=== PATIENT | female | born 1940 | race Caucasian/White ===

== ENCOUNTER 2018-05-12 08:35 | Observation (INO) ==
[2018-05-12] MEDS ORDERED: 0.9 % Sodium Chloride 1,000 ML IVC ONE (08:47)
[2018-05-12] MEDS ORDERED: Ipratropium/Albuterol Neb 3 ML IH ONE (08:48)
[2018-05-12] MEDS ORDERED: methylPREDNISolone 125 MG/2 ML VIAL IVP ONE (08:48)
[2018-05-12] MEDS ORDERED: Pantoprazole 40 MG VIAL IVP ONE (08:49)
[2018-05-12 09:07] LABS: Basophils # 0.1 K/mcL (0.0-0.2); Basophils % 0.5 %; Eosinophils # 0.1 K/mcL (0.0-0.6); Eosinophils % 0.7 %; Hematocrit 39.3 % (35.3-44.9); Immature Granulocytes % 0.2 % (0-4); Lymphocytes % 30.3 %; Mean Corpuscular HGB Conc 30.5 g/dL (31.6-35.5); Mean Corpuscular Volume 88.5 fL (83.0-100.0); Mean Platelet Volume 12.5 fL (9.4-12.4); Monocytes # 0.5 K/mcL (0.0-1.3); Neutrophils # 6.2 K/mcL (1.6-8.9); Platelet Count 143 K/mcL (140-400); Red Blood Count 4.44 M/mcL (3.82-4.97); Red Cell Distribution Width 15.2 % (11.5-14.5); Segmented Neutrophils % 63.3 %
[2018-05-12 09:13] LABS: ABG Base Excess 0 mEq/L (-2 to 3); ABG HCO3 27 mEq/L (21-27); ABG Oxygen Saturation 93 % (95-98); ABG PCO2 49 mmHg (35-45); ABG PH 7.35 pH Units (7.32-7.45); ABG PO2 73 mmHg (85-104); ABG TCO2 28 mEq/L (20-26)
[2018-05-12 09:15] LABS: INR 1.6; Prothrombin Time 17.9 Seconds (9.4-12.1)
[2018-05-12 09:25] LABS: BUN/Creatinine Ratio 23 (6-26); Blood Urea Nitrogen 18 mg/dL (8-23); Calcium 9.1 mg/dL (8.6-10.3); Carbon Dioxide 24 mEq/L (23-29); Chloride 104 mEq/L (98-107); Glucose 177 mg/dL (70-105); Osmolality,Calculated 292 (280-300); Potassium 3.7 mEq/L (3.5-5.1); Sodium 138 mEq/L (136-145); eGFR For Non-African Americans > 60 (> 60)
[2018-05-12 09:27] LABS: Troponin I < 0.03 ng/mL (< 0.04)
[2018-05-12] MEDS ORDERED: Furosemide 40 MG/4 ML VIAL IVP ONE (09:51)
--- NOTE | 2018-05-12 09:52 | Emergency Department Note ---
Disposition Clinical Impression: Acute exacerbation of chronic obstructive airways disease Pulmonary edema Qualifiers: Chronicity: chronic Qualified Code(s): J81.1 - Chronic pulmonary edema Disposition: Admitted As Inpatient Condition: Undetermined Time of Disposition: 10:07 (Dr Holcomb accepted the pt for impatient admission) SOB HPI - General Chief Complaint: ED Shortness of Breath/Dyspnea Stated Complaint: shortness of breath Time Seen by Provider: 05/12/18 08:47 Source: patient, EMS Mode of arrival: EMS Limitations: no limitations Nursing Notes Reviewed: Yes Vital Signs Reviewed: Yes - History of Present Illness Patient is a pleasant 78-year-old female with past medical history significant for HTN, CHF, Aortic aneurysm, Dyslipidemia and COPD who is presenting to [facility] Emergency Room with a chief complaint off shortness of breath, cough or chest congestion. She has been c/o cough and URI symptoms. She took her breathing treatment but was very SOB so she called EMS. Her pulse Ox was in 80s and she was given breathing treatment. Patient denies any fever, chills or night sweats. Pt also denies any eye pain or visual disturbances. There is no sore throat, nasal drainages or facial congestion. There is no chest pain, palpitations or racing heart. There is no abdominal pain, nausea, vomiting or diarrhea. There is no urgency, frequency or dysuria. There is no muskulo- skeletal pain, arthralgia or back pain. Patient also denies any rash, edema or pruritus. There is no neurological manifestations, no headache, no vertigo or weakness. The patient also denies any anxiety, depression, hallucinations and has no homicidal or suicidal ideations. There is no polyuria, polydipsia or recent weight change. There is no easy bruising or bleeding. Review of other systems is otherwise negative except above. Pt Subjective Complaint: shortness of breath, cough Context: recent illness Severity: severe Consistency/Duration: gradually worsening Improves with: bronchodilators - Related Data Home Medications Medication Instructions Recorded Confirmed Beclomethasone Diprop 80mcg [QVAR 1 puff IH BIDR 06/16/15 05/12/18 80 mcg] Magnesium Oxide [Magnesium] 400 mg PO BID 06/16/15 05/12/18 Metoprolol [Lopressor] 50 mg PO BID 06/16/15 05/12/18 Omeprazole [PriLOSEC] 20 mg PO DAILY 06/16/15 05/12/18 Simvastatin [Zocor] 40 mg PO HS 06/16/15 05/12/18 Albuterol Sulfate [Ventolin Hfa] 2 puff IH Q4H PRN 01/05/16 05/12/18 Budesonide/Formoterol 80/4.5 2 puff IH BID 01/05/16 05/12/18 [Symbicort 80/4.5] Calcium Carbonate/Vitamin D3 500 mg PO DAILY 03/20/16 05/12/18 [Oyster Shell Calcium-Vit D Tab] Furosemide [Lasix] 20 mg PO DAILY 03/20/16 05/12/18 Cetirizine HCl [All Day Allergy] 10 mg PO DAILY 11/13/17 05/12/18 Potassium Chloride [Klor-Con 10] 10 meq PO BID 11/13/17 05/12/18 Umeclidinium [place] [Incruse 62.5 mcg IH DAILY 11/13/17 Ellipta] hydroCHLOROthiazide 25 mg PO DAILY 11/13/17 05/12/18 [Hydrochlorothiazide] Previous Rx's Medication Instructions Recorded Rivaroxaban [Xarelto] 20 mg PO DAILY #30 tablet 01/07/16 Isosorbide MONOnitrate (24 HR) 30 mg PO DAILY #30 tab.er.24h 03/21/16 [Imdur] Lisinopril [Zestril] 20 mg PO DAILY #30 tablet 03/21/16 Allergies Allergy/AdvReac Type Severity Reaction Status Date / Time iodine Allergy Hives Verified 03/20/16 20:32 Iodine IVP dye Allergy Hives Uncoded 03/20/16 20:32 All systems ED: reviewed and negative except as stated. Review of Systems: As Per HPI Constitutional: Denies: fever, chills, weakness, weight change Eyes: Denies: eye pain, eye discharge, vision change ENT ED: Reports: congestion. Denies: ear pain, throat pain, dental pain, hearing loss, epistaxis, dysphagia Cardiovascular: Reports: dyspnea on exertion. Denies: chest pain, palpitations, edema, syncope Respiratory: Reports: cough, dyspnea, sputum production. Denies: wheezes, hemoptysis, stridor Gastrointestinal: Denies: abdominal pain, nausea, vomiting, diarrhea, const ipation, hematemesis, melena, hematochezia Genitourinary: Denies: dysuria, frequency, hematuria, discharge Musculoskeletal: Denies: back pain, neck pain, arthralgia, myalgia Integumentary: Denies: rash, abrasion, lesions Neurological: Denies: headache, weakness, numbness, paresthesias, confusion, ab normal gait, vertigo Psychiatric: Denies: anxiety, depression, suicidal thoughts, homicidal thoughts, auditory hallucinations, visual hallucinations Endocrine: Denies: fatigue Hematological/Lymphatic: Denies: easy bleeding, easy bruising Allergic/Immunologic: Denies: facial swelling, urticaria Past Medical History - Past Medical History Medical history: Reports: aortic aneurysm, arthritis, asthma, CHF, COPD, CVA, hypertension, TIA, other Surgical history: Reports: cholecystectomy, hysterectomy, knee replacement, other Psychiatric history: Reports: anxiety [employer] history: Reports: bilateral tubal ligation - Social History Smoking Status: Former smoker Smokeless Tobacco Status: No Alcohol use: Reports: none Drug use: Reports: none Physical Exam - General Limitations: no limitations General appearance: alert, in no apparent distress - Head Head exam: atraumatic, normocephalic, normal inspection - Eye Eye exam: Present: normal appearance, PERRL, EOMI - Expanded Eye Exam Pupils: Left: reactive - ENT ENT exam: normal exam, normal oropharynx, mucous membranes moist - Expanded ENT Exam External ear exam: Present: normal external inspection Mouth exam: Present: normal external inspection Teeth exam: Present: normal inspection Throat exam: Present: normal inspection - Neck Neck exam: Present: normal inspection, full ROM, trachea midline - Chest Chest inspection: Present: normal inspection, symmetric chest wall rise - Respiratory Respiratory exam: Present: normal lung sounds bilaterally, accessory muscle use (Nasal flaring, subcostal retractions abd breathing), prolonged expiratory phase, other (at the beginning there was no wheezes as she was NOT moving air, improved resp sounds started to have prolonged exp wheezes) - Cardiovascular Cardiovascular exam: Present: regular rate, normal rhythm, normal heart sounds - Abdominal Exam Abdominal exam: Present: soft, Non-Tender. Absent: tenderness, distention, guarding, rebound, rigidity - Extremities Exam Extremities exam: Present: normal inspection, full ROM. Absent: tenderness, pedal edema - Expanded Upper Extremity Exam Shoulder exam: Present: normal inspection, full ROM Arm exam: Present: normal inspection, full ROM Elbow exam: Present: normal inspection, full ROM Forearm/Wrist exam: Present: normal inspection, full ROM Hand exam: Present: normal inspection, full ROM Vascular exam: Normal: capillary refill, radial pulse - Expanded Lower Extremity Exam Hip/Pelvis exam: Present: normal inspection, full ROM Upper leg exam: Present: normal inspection, full ROM Knee exam: Present: normal inspection, full ROM Lower leg exam: Present: normal inspection, full ROM Ankle exam: Present: normal inspection, full ROM Foot/toe exam: Present: normal inspection, full ROM Neurovascular/Tendon exam: Absent: motor deficit, sensory deficit, tendon deficit - Back Exam Back exam: Present: normal inspection, full ROM. Absent: tenderness - Neurological Exam Neurological exam: Present: alert, oriented X3 - Expanded Neurological Exam Patient oriented to: Present: person, place, time Coma Scale Eye Opening: Spontaneous Coma Scale Motor Response: Obeys Commands Coma Scale Verbal Response: Oriented Coma Scale Total: 15 - Psychiatric Psychiatric exam: Present: normal affect, normal mood - Skin Skin exam: Present: warm, dry, intact, normal color Course Vital Signs Temperature 98.9 F 05/12/18 08:36 Pulse Rate 106 05/12/18 08:36 Respiratory Rate 26 05/12/18 08:36 Blood Pressure 162/112 05/12/18 08:36 O2 Sat by Pulse Oximetry 90 05/12/18 08:36 Temperature 98.9 F 05/12/18 08:36 Pulse Rate 79 05/12/18 09:40 Respiratory Rate 22 05/12/18 09:40 Blood Pressure 138/59 05/12/18 09:40 O2 Sat by Pulse Oximetry 98 05/12/18 09:40 Oxygen Delivery Oxygen Delivery Nasal Cannula Shortness of Breath/Dyspnea - Differential Diagnosis Likely: acute exacerbation of chronic obstructive airways disease, congestive heart failure - Medical Records Medical records reviewed: Yes I reviewed the patient's medical records. - Lab Data Lab results reviewed: Yes I reviewed the patient's lab results. Result diagrams: 05/12/18 09:00 05/12/18 09:00 Lab Results 05/12/18 05/12/18 05/12/18 Range/Units 09:00 09:00 09:00 WBC 9.8 (4.3-11.1) K/mcL RBC 4.44 (3.82-4.97) M/mcL Hgb 12.0 (11.5-15.4) g/dL Hct 39.3 (35.3-44.9) % MCV 88.5 (83.0-100.0) fL MCH 27.0 L (28.0-33.3) pg MCHC 30.5 L (31.6-35.5) g/dL RDW 15.2 H (11.5-14.5) % Plt Count 143 (140-400) K/mcL MPV 12.5 H (9.4-12.4) fL Immature Gran % 0.2 (0-4) % Seg Neutrophils % 63.3 % Lymphocytes % 30.3 % Monocytes % 5.0 % Eosinophils % 0.7 % Basophils % 0.5 % Neutrophils # 6.2 (1.6-8.9) K/mcL Lymphocytes # 3.0 (0.6-4.6) K/mcL Monocytes # 0.5 (0.0-1.3) K/mcL Eosinophils # 0.1 (0.0-0.6) K/mcL Basophils # 0.1 (0.0-0.2) K/mcL PT 17.9 H (9.4-12.1) Seconds INR 1.6 APTT (26.0-36.0) Seconds Sample Site ABG pH (7.32-7.45) pH Units ABG pCO2 (35-45) mmHg ABG pO2 (85-104) mmHg ABG HCO3 (21-27) mEq/L ABG Total CO2 (20-26) mEq/L ABG O2 Saturation (95-98) % ABG Base Excess (-2 to 3) mEq/L Willy Test O2 Delivery Device Sodium 138 (136-145) mEq/L Potassium 3.7 (3.5-5.1) mEq/L Chloride 104 (98-107) mEq/L Carbon Dioxide 24 (23-29) mEq/L BUN 18 (8-23) mg/dL Creatinine 0.78 (0.60-1.20) mg/dL Est GFR ( Amer) > 60 (> 60) Est GFR (Non-Af Amer) > 60 (> 60) BUN/Creatinine Ratio 23 (6-26) Glucose 177 H (70-105) mg/dL Calculated Osmolality 292 (280-300) Calcium 9.1 (8.6-10.3) mg/dL Troponin I < 0.03 (< 0.04) ng/mL B-Natriuretic Peptide (Less than 100) pg/mL 05/12/18 05/12/18 05/12/18 Range/Units 09:00 09:00 09:10 WBC (4.3-11.1) K/mcL RBC (3.82-4.97) M/mcL Hgb (11.5-15.4) g/dL Hct (35.3-44.9) % MCV (83.0-100.0) fL MCH (28.0-33.3) pg MCHC (31.6-35.5) g/dL RDW (11.5-14.5) % Plt Count (140-400) K/mcL MPV (9.4-12.4) fL Immature Gran % (0-4) % Seg Neutrophils % % Lymphocytes % % Monocytes % % Eosinophils % % Basophils % % Neutrophils # (1.6-8.9) K/mcL Lymphocytes # (0.6-4.6) K/mcL Monocytes # (0.0-1.3) K/mcL Eosinophils # (0.0-0.6) K/mcL Basophils # (0.0-0.2) K/mcL PT (9.4-12.1) Seconds INR APTT 37.6 H (26.0-36.0) Seconds Sample Site R Radial ABG pH 7.35 (7.32-7.45) pH Units ABG pCO2 49 H (35-45) mmHg ABG pO2 73 L (85-104) mmHg ABG HCO3 27 (21-27) mEq/L ABG Total CO2 28 H (20-26) mEq/L ABG O2 Saturation 93 L (95-98) % ABG Base Excess 0 (-2 to 3) mEq/L Willy Test Positive O2 Delivery Device Room Air Sodium (136-145) mEq/L Potassium (3.5-5.1) mEq/L Chloride (98-107) mEq/L Carbon Dioxide (23-29) mEq/L BUN (8-23) mg/dL Creatinine (0.60-1.20) mg/dL Est GFR ( Amer) (> 60) Est GFR (Non-Af Amer) (> 60) BUN/Creatinine Ratio (6-26) Glucose (70-105) mg/dL Calculated Osmolality (280-300) Calcium (8.6-10.3) mg/dL Troponin I (< 0.04) ng/mL B-Natriuretic Peptide 386 H (Less than 100) pg/mL - Radiology Data Radiology results reviewed: Yes I reviewed the patient's radiology results. - EKG Data EKG attestation: Yes I reviewed and interpreted this EKG. Rate: Reports: tachycardia Rhythm: Reports: A.Fib Interpretation: Reports: no acute changes, unchanged when compared to prior tracing (date) (2015)
[2018-05-12] MEDS ORDERED: Naloxone 0.4 MG/ML INJ IVP PRN (10:09)
[2018-05-12] MEDS ORDERED: Albuterol 2.5 MG/3 ML NEBULIZER IH PRN (11:06)
--- NOTE | 2018-05-12 13:12 | Internal Med History&Physical ---
Date of Encounter: 05/12/18 Time of Encounter: 12:45 Assessment and Plan (1) Congestive heart failure Current visit: No Status: Chronic She was given IV Lasix in emergency room. Continue HCTZ, Imdur, lisinopril, and metoprolol. Qualifiers: Heart failure type: systolic Heart failure chronicity: chronic Qualified Code(s): I50.22 - Chronic systolic (congestive) heart failure (2) COPD (chronic obstructive pulmonary disease) Current visit: No Status: Chronic Continue Symbicort, Incruse, and albuterol. Qualifiers: COPD type: unspecified COPD Qualified Code(s): J44.9 - Chronic obstructive pulmonary disease, unspecified (3) Atrial fibrillation Current visit: No Status: Chronic Continue metoprolol and Xarelto. Add Lanoxin for rate control and heart failure. Qualifiers: Atrial fibrillation type: chronic Qualified Code(s): I48.2 - Chronic atrial fibrillation (4) HTN (hypertension) Current visit: No Status: Chronic Continue hydrochlorothiazide, lisinopril, and metoprolol. Qualifiers: Hypertension type: essential hypertension Qualified Code(s): I10 - Essential (primary) hypertension (5) Pulmonary edema Current visit: Yes Status: Acute As above Qualifiers: Chronicity: acute Qualified Code(s): J81.0 - Acute pulmonary edema Internal Medicine - H&P: HPI Chief complaint: Dyspnea Admitted From: Emergency Dept Plans for Post Hospital Care: Home History of present illness: Ms. Parrish is a 78 year old female who came to emergency room stating she had onset of dyspnea the morning of May 11. She states she had a cough productive of slight amount of white sputum. She had chest heaviness. She did not take additional medication at the time. She states the dyspnea persisted all day and she awakened again this morning with it so decided to come to emergency room. She was evaluated and felt to have exacerbation of COPD per she was admitted to [facility] floor for ongoing care needs. Her respiratory history is significant for having smoked from age [age] up to 2- 1/2 packs per day. She has oxygen at home and uses it nearly 24/7. She had pulmonary function tests done 02/15/2016 which showed moderate obstructive lung disease without significant bronchodilator response. She had chest CT done during a March 2016 [facility] hospitalization which showed no acute airspace disease seen. Past Med Surg Social Fam HX - Past Medical History Medical history: aortic aneurysm, arthritis, asthma, CHF, COPD, GERD, hypertension, TIA, other Psychiatric history: anxiety - Past Surgical History Surgical History: cholecystectomy, hysterectomy, knee replacement, other Additional surgical history: left knee replacement - Social History Smoking Status: Former smoker Smokeless Tobacco Status: No Alcohol use: none Drug use: none - Family History Mother Adopted: No Family Member Ethnicity: Non- Living Status: Hx Family Cardiac Disorders: Yes Hx Family Respiratory Disorders: No Hx Family Cancer: No Hx Family GI Disorders: No Hx Family Endocrine Disorder: No Hx Family Neuromuscular Disorders: No Hx Family Neurologic Disorders: No Hx Family HEENT Disorders: No Hx Family Autoimmune Disorders: No Internal Medicine - H&P: Meds Beclomethasone Diprop 80mcg [QVAR 80 mcg] 1 puff IH BIDR 06/16/15 [History] Magnesium Oxide [Magnesium] 400 mg PO BID 06/16/15 [History] Metoprolol [Lopressor] 50 mg PO BID 06/16/15 [History] Omeprazole [PriLOSEC] 20 mg PO DAILY 06/16/15 [History] Simvastatin [Zocor] 40 mg PO HS 06/16/15 [History] Albuterol Sulfate [Ventolin Hfa] 2 puff IH Q4H PRN 01/05/16 [History] Budesonide/Formoterol 80/4.5 [Symbicort 80/4.5] 2 puff IH BID 01/05/16 [History] Rivaroxaban [Xarelto] 20 mg PO DAILY #30 tablet 01/07/16 [Rx] Calcium Carbonate/Vitamin D3 [Oyster Shell Calcium-Vit D Tab] 500 mg PO DAILY 03/20/16 [History] Furosemide [Lasix] 20 mg PO DAILY 03/20/16 [History] Isosorbide MONOnitrate (24 HR) [Imdur] 30 mg PO DAILY #30 tab.er.24h 03/21/16 [Rx] Lisinopril [Zestril] 20 mg PO DAILY #30 tablet 03/21/16 [Rx] Cetirizine HCl [All Day Allergy] 10 mg PO DAILY 11/13/17 [History] Potassium Chloride [Klor-Con 10] 10 meq PO BID 11/13/17 [History] Umeclidinium [place] [Incruse Ellipta] 62.5 mcg IH DAILY 11/13/17 [History] hydroCHLOROthiazide [Hydrochlorothiazide] 25 mg PO DAILY 11/13/17 [History] Allergy/AdvReac Type Severity Reaction Status Date / Time iodine Allergy Hives Verified 03/20/16 20:32 Iodine IVP dye Allergy Hives Uncoded 03/20/16 20:32 All Systems PM: A 10-system review of systems was performed and is negative for pertinent findings except as documented above in the HPI. Review of systems: Gen.: She states her weight is been stable the past year. Her weight record shows decline from 114.872 kg on 03/21/2016 to 95.254 kg on admission now. Cardiovascular: She has history of hypertension but no known MA heart failure angina DVT or pulmonary embolus. She has chronic atrial fibrillation and was placed on Xarelto during her December 2015 [facility] hospitalization. She underwent nuclear stress test during that hospitalization which was negative for ischemia or infarct. Echocardiogram 08/16/2016 showed LVEF of 45% with no significant valvular dysfunction noted. She has chronic left bundle-branch block. Respiratory: As per history of present illness GI: She has history of peptic ulcer disease and GERD. She claims she had pancreatitis June 2013 of uncertain etiology. She denies disorders of her liver gallbladder or exocrine pancreas otherwise : She has urinary incontinence both stress and urge type. She denies other known kidney or bladder disorders Neurologic: She was told she has had "mini strokes" in the past while hospitali zed at [facility] in June 2013. She denies permanent residual neurologic deficits. She has had no seizures. Endocrine: She had partial thyroid resection several years ago for goiter. Soft tissue neck CT March 2016 showed no significant change from June 2015 study. There was no cervical adenopathy. She has hyperlipidemia but no known diabetes Hematology/oncology: She denies internal malignancies but has had anemia in the past which has resolved now. [place] skeletal: She had left total knee replacement March 2013. She denies known gout or osteoporosis Psychiatric: She has depression but no significant anxiety or other mental health issues. - Constitutional Vitals: Temp Pulse Resp BP Pulse Ox 98.1 F 94 30 126/83 95 05/12/18 10:54 05/12/18 10:54 05/12/18 10:54 05/12/18 10:54 05/12/18 10:54 Exam: Gen.: She is a well-developed morbidly obese female lying in bed who appears dyspneic. HEENT: Head is atraumatic and normocephalic. Eyes: EOMI. There is no scleral icterus. Mouth: Mucosa is moist. Neck: Supple and nontender. There is no thyromegaly or adenopathy noted. Heart: Irregularly irregular without murmurs or gallops Lungs: No wheezes or crackles are heard. She has diminished breath sounds diffusely Abdomen: Soft and nontender. No masses or guarding are noted. Extremities: There is no cyanosis edema or clubbing noted. Dorsalis pedis and posttibial pulses are trace palpable bilaterally. Neurologic: Mental status: She is talkative and a good historian. Cranial nerve s: Smile is symmetric. Forehead wrinkles bilaterally. Tongue protrudes midline. EOMI. Motor: There is no pronator drift. Cerebellar: Finger to nose is intact bilaterally. Skin: Warm and dry Internal Med - H&P Results - Labs CBC & Chem 7: 05/12/18 09:00 05/12/18 09:00 Labs: Short CBC 05/12/18 Range/Units 09:00 WBC 9.8 (4.3-11.1) K/mcL Hgb 12.0 (11.5-15.4) g/dL Hct 39.3 (35.3-44.9) % Plt Count 143 (140-400) K/mcL Neutrophils # 6.2 (1.6-8.9) K/mcL BMP 05/12/18 09:00 Sodium 138 Potassium 3.7 Chloride 104 Carbon Dioxide 24 BUN 18 Creatinine 0.78 Glucose 177 H Calcium 9.1 Cardiac Enzymes 05/12/18 Range/Units 09:00 Troponin I < 0.03 (< 0.04) ng/mL - ABG Interpretation ABG results: 05/12/18 09:10 ABG pH 7.35 ABG pCO2 49 H ABG pO2 73 L ABG HCO3 27 ABG Total CO2 28 H ABG O2 Saturation 93 L ABG Base Excess 0 - Impressions ITS Impressions Chest X-Ray 05/12/18 08:47 IMPRESSION: Findings of pulmonary edema. D/ / Hemant Wall MD / Hemant Wall MD Interpreting Provider: Hemant Wall MD
[2018-05-12] MEDS: Budesonide/Formoterol 160/4.5 1 PUFF INH IH SCH ×2 (13:50→21:33)
[2018-05-12] MEDS: Isosorbide MONOnitrate (24 HR) 60 MG TAB.ER.24H PO SCH (15:17)
[2018-05-12] MEDS: *HR* Digoxin 0.125 MG TABLET PO SCH (15:17)
[2018-05-12] MEDS: Furosemide 40 MG/4 ML VIAL IVP SCH ×2 (15:18→15:20)
[2018-05-12] MEDS ORDERED: *HR* Rivaroxaban 10 MG TABLET PO SCH (17:00)
[2018-05-12] MEDS: Magnesium Oxide 400 MG TABLET PO SCH (20:39)
[2018-05-13] MEDS: Ibuprofen 400 MG TABLET PO PRN ×2 (01:51→08:07)
[2018-05-13 06:11] LABS: Basophils % 0.1 %; Hematocrit 34.4 % (35.3-44.9); Hemoglobin 10.8 g/dL (11.5-15.4); Immature Granulocytes % 0.1 % (0-4); Lymphocytes # 1.3 K/mcL (0.6-4.6); Lymphocytes % 17.4 %; Mean Corpuscular HGB Conc 31.4 g/dL (31.6-35.5); Mean Corpuscular Hemoglobin 27.3 pg (28.0-33.3); Mean Corpuscular Volume 87.1 fL (83.0-100.0); Mean Platelet Volume 12.7 fL (9.4-12.4); Monocytes # 0.4 K/mcL (0.0-1.3); Monocytes % 6.1 %; Neutrophils # 5.5 K/mcL (1.6-8.9); Platelet Count 131 K/mcL (140-400); Red Blood Count 3.95 M/mcL (3.82-4.97); Red Cell Distribution Width 15.4 % (11.5-14.5); Segmented Neutrophils % 76.3 %
[2018-05-13 06:34] LABS: BUN/Creatinine Ratio 22 (6-26); Blood Urea Nitrogen 21 mg/dL (8-23); Calcium 8.8 mg/dL (8.6-10.3); Carbon Dioxide 29 mEq/L (23-29); Chloride 101 mEq/L (98-107); Chol/HDL Ratio 2.4 (0-4.9); Cholesterol 100 mg/dL (< 200); Glucose 147 mg/dL (70-105); HDL Cholesterol 41 mg/dL (40-59); LDL Cholesterol,Calculated 47 mg/dL (0-99); Osmolality,Calculated 292 (280-300); Phosphorous 2.5 mg/dL (2.7-4.5); Potassium 4.3 mEq/L (3.5-5.1); Sodium 138 mEq/L (136-145); Triglycerides 58 mg/dL (< 150); eGFR For Non-African Americans 57 (> 60)
[2018-05-13] MEDS: *HR* Digoxin 0.125 MG TABLET PO SCH (07:40)
[2018-05-13] MEDS: Furosemide 40 MG/4 ML VIAL IVP SCH (07:40)
[2018-05-13] MEDS: Isosorbide MONOnitrate (24 HR) 60 MG TAB.ER.24H PO SCH (07:40)
[2018-05-13] MEDS: Magnesium Oxide 400 MG TABLET PO SCH (07:40)
--- NOTE | 2018-05-13 08:58 | Discharge Summary ---
Orders not resulted at time of discharge: Pending orders 05/12/18 08:47 ECG 12 lead ECG [ECG] Stat 05/12/18 08:48 Urinalysis Reflex Cult & Micro [URIN] Stat Date of Encounter: 05/13/18 Time of Encounter: 08:50 - Discharge Diagnosis (1) Congestive heart failure Priority: Primary Status: Chronic Qualifiers: Heart failure type: systolic Heart failure chronicity: chronic Qualified Code(s): I50.22 - Chronic systolic (congestive) heart failure (2) COPD (chronic obstructive pulmonary disease) Priority: Secondary Status: Chronic Qualifiers: COPD type: unspecified COPD Qualified Code(s): J44.9 - Chronic obstructive pulmonary disease, unspecified (3) Atrial fibrillation Priority: Secondary Status: Chronic Qualifiers: Atrial fibrillation type: chronic Qualified Code(s): I48.2 - Chronic atrial fibrillation (4) HTN (hypertension) Priority: Secondary Status: Chronic Qualifiers: Hypertension type: essential hypertension Qualified Code(s): I10 - Essenti al (primary) hypertension (5) Pulmonary edema Priority: Secondary Status: Acute Qualifiers: Chronicity: acute Qualified Code(s): J81.0 - Acute pulmonary edema Hospital course: Ms. Parrish is a 78 year old female who came to emergency room stating she had onset of dyspnea the morning of May 11. She states she had a cough productive of slight amount of white sputum. She had chest heaviness. She did not take additional medication at the time. She states the dyspnea persisted all day and she awakened again this morning with it so decided to come to emergency room. She was evaluated and felt to have exacerbation of COPD per she was admitted to [facility] for ongoing care needs. Initial orders were written by the emergency room physician. I saw her on May 12 and performed the history and physical. She was started on IV Lasix. Hydrochlorothiazide, Imdur, lisinopril, and metoprolol were continued. The Imdur dose was increased and Lanoxin was added. She had significant improvement overnight and felt back to her baseline when I saw her on May 13. Wheezing and dyspnea had completely resolved and she was sitting in a chair at bedside resting comfortably. She felt stable for discharge home which I felt was reasonable. She will follow with her PCP Joanna Nolan CNP within 1 week. She will continue on Lanoxin and increased doses of Imdur, Lasix, and potassium. Fasting blood sugar on May 13 was elevated at 147. Her PCP can monitor and order further workup for diabetes. Hemoglobin had decreased slightly to 10.8 on May 13. Her PCP can monitor. - Time Spent with Patient Total time spent providing and/or coordinating discharge services: - Discharge Medications Prescriptions: Digoxin [Lanoxin] 0.125 mg PO DAILY #30 tablet Furosemide [Lasix] 40 mg PO DAILY #30 tablet Isosorbide MONOnitrate (24 HR) [Imdur] 60 mg PO DAILY #30 tab.er.24h Potassium Chloride 20 meq PO BIDWM #120 tab.er.prt Home Medications: Beclomethasone Diprop 80mcg [QVAR 80 mcg] 1 puff IH BIDR 06/16/15 [History] Magnesium Oxide [Magnesium] 400 mg PO BID 06/16/15 [History] Metoprolol [Lopressor] 50 mg PO BID 06/16/15 [History] Omeprazole [PriLOSEC] 20 mg PO DAILY 06/16/15 [History] Simvastatin [Zocor] 40 mg PO HS 06/16/15 [History] Albuterol Sulfate [Ventolin Hfa] 2 puff IH Q4H PRN 01/05/16 [History] Budesonide/Formoterol 80/4.5 [Symbicort 80/4.5] 2 puff IH BID 01/05/16 [History] Rivaroxaban [Xarelto] 20 mg PO DAILY #30 tablet 01/07/16 [Rx] Calcium Carbonate/Vitamin D3 [Oyster Shell Calcium-Vit D Tab] 500 mg PO DAILY 03/20/16 [History] Lisinopril [Zestril] 20 mg PO DAILY #30 tablet 03/21/16 [Rx] Umeclidinium [place] [Incruse Ellipta] 62.5 mcg IH DAILY 11/13/17 [History] hydroCHLOROthiazide [Hydrochlorothiazide] 25 mg PO DAILY 11/13/17 [History] Cetirizine HCl [All Day Allergy] 10 mg PO DAILY PRN #0 05/13/18 [Rx] Digoxin [Lanoxin] 0.125 mg PO DAILY #30 tablet 05/13/18 [Rx] Furosemide [Lasix] 40 mg PO DAILY #30 tablet 05/13/18 [Rx] Isosorbide MONOnitrate (24 HR) [Imdur] 60 mg PO DAILY #30 tab.er.24h 05/13/18 [Rx] Potassium Chloride 20 meq PO BIDWM #120 tab.er.prt 05/13/18 [Rx] Allergies/Adverse Reactions: Allergy/AdvReac Type Severity Reaction Status Date / Time iodine Allergy Hives Verified 03/20/16 20:32 Iodine IVP dye Allergy Hives Uncoded 03/20/16 20:32 Date of admission: 05/12/18 10:14 Primary care physician: Joanna Villa - Constitutional Vitals: Temp Pulse Resp BP Pulse Ox 98.1 F 73 16 105/63 95 05/13/18 07:12 05/13/18 07:12 05/13/18 07:12 05/13/18 07:12 05/13/18 07:12 - Patient Status Disposition: Home, Self-Care Condition: Undetermined - Discharge Instructions Follow Up With: Joanna Villa, [employer] [Primary Care Provider] - - Diet and Activity Activity: resume usual activities as tolerated, wear oxygen at all times Diet: low salt diet
[2018-05-13] MEDS ORDERED: Lisinopril 20 MG TABLET PO SCH (09:00)
[2018-05-13] MEDS ORDERED: hydroCHLOROthiazide 25 MG TABLET PO SCH (09:00)
[2018-05-13] MEDS: Budesonide/Formoterol 160/4.5 1 PUFF INH IH SCH (09:41)
[2018-05-13 10:07] VITALS: BP 76/45
[2018-05-13] MEDS ORDERED: *HR* Rivaroxaban 15 MG TABLET PO SCH (17:00)
--- NOTE | 2018-05-14 19:54 | Electrocardiograph Report ---
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
== END 2018-05-13 11:39 | disposition home or self-care (01) ==
LOC: EMEROOPIK 08:35 → INPPIK 08:35
PROVIDERS: ADMIT Internal Medicine; ATTEND Internal Medicine

== ENCOUNTER 2019-11-13 00:21 | Inpatient (IN) ==
[2019-11-13] MEDS ORDERED: Ipratropium/Albuterol Neb 3 ML IH ONE (00:28)
[2019-11-13] MEDS ORDERED: methylPREDNISolone 125 MG/2 ML VIAL IVP ONE ×2 (00:28→08:00)
[2019-11-13 01:15] LABS: Basophils % 0.3 %; Eosinophils # 0.1 K/mcL (0.0-0.6); Eosinophils % 0.6 %; Hematocrit 41.9 % (35.3-44.9); Hemoglobin 13.4 g/dL (11.5-15.4); Immature Granulocytes % 0.3 % (0-4); Lymphocytes # 1.2 K/mcL (0.6-4.6); Lymphocytes % 11.8 %; Mean Corpuscular Hemoglobin 30.4 pg (28.0-33.3); Mean Platelet Volume 12.4 fL (9.4-12.4); Monocytes % 10.5 %; Neutrophils # 7.5 K/mcL (1.6-8.9); Platelet Count 137 K/mcL (140-400); Red Blood Count 4.41 M/mcL (3.82-4.97); Red Cell Distribution Width 13.2 % (11.5-14.5); Segmented Neutrophils % 76.5 %; White Blood Count 9.9 K/mcL (4.3-11.1)
[2019-11-13 01:36] LABS: BUN/Creatinine Ratio 26 (6-26); Blood Urea Nitrogen 16 mg/dL (8-23); Calcium 9.1 mg/dL (8.6-10.3); Carbon Dioxide 25 mEq/L (23-29); Chloride 101 mEq/L (98-107); Glucose 141 mg/dL (70-105); Osmolality,Calculated 286 (280-300); Potassium 4.1 mEq/L (3.5-5.1); Sodium 136 mEq/L (136-145); eGFR For African Americans > 60 (> 60); eGFR For Non-African Americans > 60 (> 60)
[2019-11-13 01:37] LABS: Troponin I 0.03 ng/mL (< 0.04)
[2019-11-13] MEDS ORDERED: Naloxone 0.4 MG/ML INJ IVP PRN (03:09)
[2019-11-13] MEDS: Azithromycin 500 MG in 0.9 % Sodium Chloride 250 ML IVPB SCH (03:45)
[2019-11-13] MEDS: cefTRIAXone 1,000 MG in 0.9 % Sodium Chloride Mini Bag 100 ML IVPB SCH (08:20)
[2019-11-13] MEDS: Ipratropium/Albuterol Neb 3 ML IH SCH ×6 (08:20→23:40)
[2019-11-13] MEDS: Furosemide 20 MG TABLET PO SCH (08:21)
[2019-11-13] MEDS: Aspirin 81 MG TAB.CHEW PO SCH (08:22)
[2019-11-13] MEDS: lisinopriL 20 MG TABLET PO SCH (08:22)
[2019-11-13] MEDS: Tiotropium 18 MCG inhalation IH SCH (08:25)
[2019-11-13] MEDS: Fluticasone Propionate Nasal 50 MCG/SPRAY BOTTLE NS SCH (08:35)
[2019-11-13] MEDS ORDERED: ALPRAZolam 0.25 MG TABLET PO PRN (10:09)
[2019-11-13 16:46] LABS: Bilirubin,Urine Negative (Negative); Blood,Urine Negative (Negative); Clarity,Urine Clear (Clear); Color,Urine Yellow (Yellow); Glucose,Urine (UA) Normal (Normal); Ketones,Urine Negative (Negative); Leukocyte Esterase,Urine Small (Negative); Nitrite,Urine Negative (Negative); PH,Urine 5.5 pH Units (5.0-8.0); Protein,Urine Negative (Neg-Trace); Urobilinogen,Urine Normal (Normal)
[2019-11-13 16:55] LABS: Bacteria,Urine Few per hpf (None-Few); RBC,Urine 0-3 per hpf (0-3); Squamous Epithelial Cell,Urine Few per lpf (None-Few)
[2019-11-13 22:46] LABS: Adenovirus Not Detected (Not Detect); Bordetella Pertussis Not Detected (Not Detect); Chlamydophila pneumoniae Not Detected (Not Detect); Coronavirus 229E Not Detected (Not Detect); Coronavirus HKU1 Not Detected (Not Detect); Coronavirus NL63 Not Detected (Not Detect); Coronavirus OC43 Not Detected (Not Detect); Human Metapneumovirus Not Detected (Not Detect); Human Rhinovirus/Enterovirus Not Detected (Not Detect); Influenza A Subtype 2009 H1 Not Detected (Not Detect); Influenza B Not Detected (Not Detect); Mycoplasma pneumoniae Not Detected (Not Detect); Parainfluenza Virus 1 Not Detected (Not Detect); Parainfluenza Virus 2 Not Detected (Not Detect); Parainfluenza Virus 3 Not Detected (Not Detect); Parainfluenza Virus 4 Not Detected (Not Detect); Respiratory Syncytial Virus Not Detected (Not Detect)
[2019-11-14] MEDS: Azithromycin 500 MG in 0.9 % Sodium Chloride 250 ML IVPB SCH (02:10)
[2019-11-14] MEDS: Acetaminophen 325 MG TABLET PO PRN ×2 (02:10→17:17)
[2019-11-14] MEDS: Ipratropium/Albuterol Neb 3 ML IH SCH ×5 (04:41→21:07)
[2019-11-14 05:24] LABS: Hematocrit 37.9 % (35.3-44.9); Hemoglobin 12.1 g/dL (11.5-15.4); Mean Corpuscular HGB Conc 31.9 g/dL (31.6-35.5); Mean Corpuscular Hemoglobin 30.4 pg (28.0-33.3); Mean Corpuscular Volume 95.2 fL (83.0-100.0); Mean Platelet Volume 13.2 fL (9.4-12.4); Platelet Count 126 K/mcL (140-400); Red Blood Count 3.98 M/mcL (3.82-4.97); Red Cell Distribution Width 13.1 % (11.5-14.5); White Blood Count 9.9 K/mcL (4.3-11.1)
[2019-11-14 05:43] LABS: BUN/Creatinine Ratio 29 (6-26); Blood Urea Nitrogen 17 mg/dL (8-23); Calcium 9.1 mg/dL (8.6-10.3); Carbon Dioxide 29 mEq/L (23-29); Chloride 103 mEq/L (98-107); Glucose 144 mg/dL (70-105); Osmolality,Calculated 294 (280-300); Potassium 4.3 mEq/L (3.5-5.1); Sodium 140 mEq/L (136-145); eGFR For African Americans > 60 (> 60); eGFR For Non-African Americans > 60 (> 60)
[2019-11-14] MEDS: cefTRIAXone 1,000 MG in 0.9 % Sodium Chloride Mini Bag 100 ML IVPB SCH (07:48)
[2019-11-14] MEDS: Furosemide 20 MG TABLET PO SCH (07:49)
[2019-11-14] MEDS: Fluticasone Propionate Nasal 50 MCG/SPRAY BOTTLE NS SCH (07:49)
[2019-11-14] MEDS: Aspirin 81 MG TAB.CHEW PO SCH (07:49)
[2019-11-14] MEDS: lisinopriL 20 MG TABLET PO SCH (07:54)
[2019-11-14] MEDS: Tiotropium 18 MCG inhalation IH SCH (08:05)
[2019-11-14 10:29] LABS: Estimated Average Glucose 140 mg/dl
[2019-11-14] MEDS: MethylPREDNISolone 40 MG/ML VIAL IVP SCH ×2 (17:15→19:59)
[2019-11-14] MEDS ORDERED: MethylPREDNISolone 40 MG/ML VIAL IVP SCH (18:00)
[2019-11-14] MEDS: Benzonatate 100 MG CAPSULE PO SCH (20:25)
[2019-11-15] MEDS: Ipratropium/Albuterol Neb 3 ML IH SCH ×6 (00:40→20:25)
[2019-11-15] MEDS: Azithromycin 500 MG in 0.9 % Sodium Chloride 250 ML IVPB SCH (03:41)
[2019-11-15 07:46] LABS: Hematocrit 38.5 % (35.3-44.9); Hemoglobin 12.3 g/dL (11.5-15.4); Mean Corpuscular HGB Conc 31.9 g/dL (31.6-35.5); Mean Corpuscular Hemoglobin 30.5 pg (28.0-33.3); Mean Corpuscular Volume 95.5 fL (83.0-100.0); Mean Platelet Volume 12.4 fL (9.4-12.4); Platelet Count 133 K/mcL (140-400); Red Blood Count 4.03 M/mcL (3.82-4.97); Red Cell Distribution Width 13.2 % (11.5-14.5); White Blood Count 6.4 K/mcL (4.3-11.1)
[2019-11-15 08:12] LABS: BUN/Creatinine Ratio 29 (6-26); Blood Urea Nitrogen 18 mg/dL (8-23); Calcium 9.2 mg/dL (8.6-10.3); Carbon Dioxide 31 mEq/L (23-29); Chloride 100 mEq/L (98-107); Glucose 155 mg/dL (70-105); Osmolality,Calculated 293 (280-300); Potassium 4.3 mEq/L (3.5-5.1); Sodium 139 mEq/L (136-145); eGFR For African Americans > 60 (> 60); eGFR For Non-African Americans > 60 (> 60)
[2019-11-15] MEDS: Benzonatate 100 MG CAPSULE PO SCH ×3 (08:28→20:02)
[2019-11-15] MEDS: Acetaminophen 325 MG TABLET PO PRN (08:28)
[2019-11-15] MEDS: Fluticasone Propionate Nasal 50 MCG/SPRAY BOTTLE NS SCH (08:28)
[2019-11-15] MEDS: lisinopriL 20 MG TABLET PO SCH (08:29)
[2019-11-15] MEDS: Furosemide 20 MG TABLET PO SCH (08:29)
[2019-11-15] MEDS: cefTRIAXone 2,000 MG in Water for inj. (sterile) 20 ML IVP SCH (08:29)
[2019-11-15] MEDS: Aspirin 81 MG TAB.CHEW PO SCH (08:29)
[2019-11-15] MEDS: MethylPREDNISolone 40 MG/ML VIAL IVP SCH ×3 (08:30→20:02)
[2019-11-15] MEDS ORDERED: cefTRIAXone 2,000 MG in 0.9 % Sodium Chloride Mini Bag 100 ML IVPB SCH (09:00)
[2019-11-15] MEDS: Tiotropium 18 MCG inhalation IH SCH (11:13)
[2019-11-16] MEDS: Ipratropium/Albuterol Neb 3 ML IH SCH ×4 (00:27→13:15)
[2019-11-16] MEDS: Azithromycin 500 MG in 0.9 % Sodium Chloride 250 ML IVPB SCH (02:52)
[2019-11-16 06:44] LABS: Hematocrit 38.4 % (35.3-44.9); Hemoglobin 12.2 g/dL (11.5-15.4); Mean Corpuscular HGB Conc 31.8 g/dL (31.6-35.5); Mean Corpuscular Hemoglobin 30.3 pg (28.0-33.3); Mean Corpuscular Volume 95.5 fL (83.0-100.0); Mean Platelet Volume 12.8 fL (9.4-12.4); Platelet Count 137 K/mcL (140-400); Red Blood Count 4.02 M/mcL (3.82-4.97); Red Cell Distribution Width 12.9 % (11.5-14.5); White Blood Count 6.7 K/mcL (4.3-11.1)
[2019-11-16 07:18] LABS: BUN/Creatinine Ratio 38 (6-26); Blood Urea Nitrogen 23 mg/dL (8-23); Calcium 9.2 mg/dL (8.6-10.3); Carbon Dioxide 34 mEq/L (23-29); Chloride 101 mEq/L (98-107); Glucose 153 mg/dL (70-105); Osmolality,Calculated 297 (280-300); Potassium 4.3 mEq/L (3.5-5.1); Sodium 140 mEq/L (136-145); eGFR For African Americans > 60 (> 60); eGFR For Non-African Americans > 60 (> 60)
[2019-11-16] MEDS: Acetaminophen 325 MG TABLET PO PRN (09:17)
[2019-11-16] MEDS: Benzonatate 100 MG CAPSULE PO SCH (09:18)
[2019-11-16] MEDS: MethylPREDNISolone 40 MG/ML VIAL IVP SCH (09:18)
[2019-11-16] MEDS: Fluticasone Propionate Nasal 50 MCG/SPRAY BOTTLE NS SCH (09:18)
[2019-11-16] MEDS: cefTRIAXone 2,000 MG in Water for inj. (sterile) 20 ML IVP SCH (09:18)
[2019-11-16] MEDS: Furosemide 20 MG TABLET PO SCH (09:19)
[2019-11-16] MEDS: lisinopriL 20 MG TABLET PO SCH (09:19)
[2019-11-16] MEDS: Aspirin 81 MG TAB.CHEW PO SCH (09:19)
[2019-11-16] MEDS ORDERED: Tiotropium 18 MCG inhalation IH SCH (10:00)
[2019-11-16 10:05] VITALS: BP 145/79
== END 2019-11-16 13:18 | disposition home health service (06) | DRG 140 ==
LOC: EMEROOPIK 00:21 → INPPIK 00:21
PROVIDERS: ADMIT Family Medicine; ATTEND Family Medicine

== ENCOUNTER 2020-02-25 12:31 | Inpatient (IN) ==
[2020-02-25 14:08] LABS: Basophils % 0.6 %; Eosinophils # 0.1 K/mcL (0.0-0.6); Eosinophils % 1.4 %; Hematocrit 39.8 % (35.3-44.9); Hemoglobin 12.6 g/dL (11.5-15.4); Immature Granulocytes % 0.2 % (0-4); Lymphocytes # 1.1 K/mcL (0.6-4.6); Lymphocytes % 21.4 %; Mean Corpuscular HGB Conc 31.7 g/dL (31.6-35.5); Mean Corpuscular Hemoglobin 30.1 pg (28.0-33.3); Mean Corpuscular Volume 95.2 fL (83.0-100.0); Mean Platelet Volume 12.6 fL (9.4-12.4); Monocytes # 0.6 K/mcL (0.0-1.3); Monocytes % 11.1 %; Neutrophils # 3.2 K/mcL (1.6-8.9); Platelet Count 133 K/mcL (140-400); Red Blood Count 4.18 M/mcL (3.82-4.97); Red Cell Distribution Width 13.2 % (11.5-14.5); Segmented Neutrophils % 65.3 %
[2020-02-25 14:11] LABS: INR 1.1; Prothrombin Time 12.5 Seconds (9.4-12.1)
[2020-02-25 14:13] LABS: Activated Partial Thrombo Time 34.5 Seconds (26.0-36.0)
[2020-02-25 14:20] LABS: BUN/Creatinine Ratio 19 (6-26); Blood Urea Nitrogen 13 mg/dL (8-23); Calcium 9.2 mg/dL (8.6-10.3); Carbon Dioxide 31 mEq/L (23-29); Chloride 104 mEq/L (98-107); Glucose 109 mg/dL (70-105); Osmolality,Calculated 291 (280-300); Potassium 4.5 mEq/L (3.5-5.1); Sodium 140 mEq/L (136-145); eGFR For African Americans > 60 (> 60); eGFR For Non-African Americans > 60 (> 60)
[2020-02-25 14:21] LABS: Troponin I < 0.03 ng/mL (< 0.04)
[2020-02-25] MEDS ORDERED: Ipratropium/Albuterol Neb 3 ML IH ONE (14:37)
[2020-02-25] MEDS ORDERED: cefTRIAXone 1,000 MG in 0.9 % Sodium Chloride Mini Bag 100 ML IVPB ONE (15:07)
[2020-02-25] MEDS ORDERED: Azithromycin 500 MG in 0.9 % Sodium Chloride 250 ML IVPB ONE (15:07)
[2020-02-25 16:25] LABS: Adenovirus Not Detected (Not Detect); Bordetella Pertussis Not Detected (Not Detect); Chlamydophila pneumoniae Not Detected (Not Detect); Coronavirus 229E Not Detected (Not Detect); Coronavirus HKU1 Not Detected (Not Detect); Coronavirus NL63 Not Detected (Not Detect); Coronavirus OC43 Not Detected (Not Detect); Human Metapneumovirus Not Detected (Not Detect); Human Rhinovirus/Enterovirus Not Detected (Not Detect); Influenza A Subtype 2009 H1 Not Detected (Not Detect); Influenza B Not Detected (Not Detect); Mycoplasma pneumoniae Not Detected (Not Detect); Parainfluenza Virus 1 Not Detected (Not Detect); Parainfluenza Virus 2 Not Detected (Not Detect); Parainfluenza Virus 3 Not Detected (Not Detect); Parainfluenza Virus 4 Not Detected (Not Detect); Respiratory Syncytial Virus Not Detected (Not Detect)
[2020-02-25] MEDS ORDERED: Naloxone 0.4 MG/ML INJ IVP PRN (16:40)
[2020-02-25] MEDS ORDERED: MOM Conc 10 ML UD.LIQ PO PRN (16:40)
[2020-02-25] MEDS ORDERED: Ondansetron 4 MG/2 ML VIAL IVP PRN (16:40)
[2020-02-25] MEDS ORDERED: Mag Hydrox/Al Hydrox/Simeth 30 ML UDC PO PRN (16:40)
[2020-02-25] MEDS ORDERED: methylPREDNISolone 125 MG/2 ML VIAL IVP ONE (16:46)
[2020-02-25] MEDS ORDERED: Ipratropium/Albuterol Neb 3 ML IH PRN (16:47)
[2020-02-25] MEDS ORDERED: Furosemide 20 MG/2 ML VIAL IVP ONE (16:56)
[2020-02-25] MEDS: *HR* Enoxaparin 150 MG/ML SYRINGE SQ SCH (17:56)
[2020-02-25] MEDS: Ipratropium/Albuterol Neb 3 ML IH SCH (22:23)
[2020-02-25] MEDS: MethylPREDNISolone 40 MG/ML VIAL IVP SCH (23:25)
[2020-02-26 02:03] LABS: Basophils % 0.2 %; Hematocrit 40.8 % (35.3-44.9); Hemoglobin 12.9 g/dL (11.5-15.4); Lymphocytes # 0.6 K/mcL (0.6-4.6); Lymphocytes % 11.6 %; Mean Corpuscular HGB Conc 31.6 g/dL (31.6-35.5); Mean Corpuscular Hemoglobin 29.9 pg (28.0-33.3); Mean Corpuscular Volume 94.7 fL (83.0-100.0); Mean Platelet Volume 12.3 fL (9.4-12.4); Monocytes # 0.1 K/mcL (0.0-1.3); Monocytes % 0.9 %; Neutrophils # 4.7 K/mcL (1.6-8.9); Platelet Count 138 K/mcL (140-400); Red Blood Count 4.31 M/mcL (3.82-4.97); Red Cell Distribution Width 12.9 % (11.5-14.5); Segmented Neutrophils % 87.3 %; White Blood Count 5.4 K/mcL (4.3-11.1)
[2020-02-26] MEDS: Ipratropium/Albuterol Neb 3 ML IH SCH ×4 (04:28→22:26)
[2020-02-26 04:46] LABS: BUN/Creatinine Ratio 23 (6-26); Blood Urea Nitrogen 14 mg/dL (8-23); Calcium 9.2 mg/dL (8.6-10.3); Carbon Dioxide 32 mEq/L (23-29); Chloride 101 mEq/L (98-107); Glucose 171 mg/dL (70-105); Osmolality,Calculated 297 (280-300); Sodium 141 mEq/L (136-145); eGFR For African Americans > 60 (> 60); eGFR For Non-African Americans > 60 (> 60)
[2020-02-26] MEDS: Acetaminophen 325 MG TABLET PO PRN (04:46)
[2020-02-26] MEDS: *HR* Enoxaparin 150 MG/ML SYRINGE SQ SCH ×2 (05:06→17:11)
[2020-02-26] MEDS: Furosemide 40 MG/4 ML VIAL IVP SCH ×2 (08:05→17:11)
[2020-02-26] MEDS: MethylPREDNISolone 40 MG/ML VIAL IVP SCH ×3 (08:06→23:50)
[2020-02-26] MEDS: lisinopriL 20 MG TABLET PO SCH (08:06)
[2020-02-26] MEDS: Magnesium Oxide 400 MG TABLET PO SCH (08:06)
[2020-02-26] MEDS: Aspirin 81 MG TAB.CHEW PO SCH (08:06)
[2020-02-26] MEDS: Loratadine 10 MG TABLET PO SCH (08:06)
[2020-02-26] MEDS: Fluticasone Propionate Nasal 50 MCG/SPRAY BOTTLE NS SCH (08:20)
[2020-02-26] MEDS ORDERED: cefTRIAXone 2,000 MG in Water for inj. (sterile) 20 ML IVP SCH (17:00)
[2020-02-26] MEDS ORDERED: Azithromycin 500 MG in 0.9 % Sodium Chloride 250 ML IVPB SCH (17:00)
[2020-02-26 23:15] LABS: Acinetobacter baumannii by PCR Not Detected (Not Detect); Enterobacter cloacae Cmplx PCR Not Detected (Not Detect); Enterobacteriaceae by PCR Not Detected (Not Detect); Enterococcus by PCR Not Detected (Not Detect); Escherichia coli by PCR Not Detected (Not Detect); Klebsiella oxytoca by PCR Not Detected (Not Detect); Klebsiella pneumoniae by PCR Not Detected (Not Detect); Proteus by PCR Not Detected (Not Detect); Serratia marcescens by PCR Not Detected (Not Detect); Staphylococcus aureus by PCR Not Detected (Not Detect); Staphylococcus by PCR DETECTED (Not Detect); Streptococcus agalactiae(B)PCR Not Detected (Not Detect); Streptococcus by PCR Not Detected (Not Detect); Streptococcus pneumoniae PCR Not Detected (Not Detect); Streptococcus pyogenes (A) PCR Not Detected (Not Detect); mecA Methicillin-Resist Gene DETECTED (Not Detect)
[2020-02-26 23:16] LABS: Candida albicans by PCR Not Detected (Not Detect); Candida glabrata by PCR Not Detected (Not Detect); Candida krusei by PCR Not Detected (Not Detect); Candida parapsilosis by PCR Not Detected (Not Detect); Candida tropicalis by PCR Not Detected (Not Detect); Pseudomonas aeruginosa by PCR Not Detected (Not Detect)
[2020-02-27] MEDS: Ipratropium/Albuterol Neb 3 ML IH SCH ×5 (04:28→16:11)
[2020-02-27 05:20] LABS: Basophils % 0.1 %; Hematocrit 40.3 % (35.3-44.9); Hemoglobin 12.9 g/dL (11.5-15.4); Immature Granulocytes % 0.1 % (0-4); Lymphocytes # 0.8 K/mcL (0.6-4.6); Lymphocytes % 11.3 %; Mean Corpuscular Hemoglobin 29.9 pg (28.0-33.3); Mean Corpuscular Volume 93.3 fL (83.0-100.0); Mean Platelet Volume 12.5 fL (9.4-12.4); Monocytes # 0.1 K/mcL (0.0-1.3); Monocytes % 1.6 %; Neutrophils # 6.3 K/mcL (1.6-8.9); Platelet Count 143 K/mcL (140-400); Red Blood Count 4.32 M/mcL (3.82-4.97); Red Cell Distribution Width 12.7 % (11.5-14.5); Segmented Neutrophils % 86.9 %; White Blood Count 7.3 K/mcL (4.3-11.1)
[2020-02-27 05:41] LABS: BUN/Creatinine Ratio 32 (6-26); Blood Urea Nitrogen 19 mg/dL (8-23); Calcium 9.4 mg/dL (8.6-10.3); Carbon Dioxide 34 mEq/L (23-29); Chloride 99 mEq/L (98-107); Sodium 140 mEq/L (136-145); eGFR For African Americans > 60 (> 60); eGFR For Non-African Americans > 60 (> 60)
[2020-02-27] MEDS: *HR* Enoxaparin 150 MG/ML SYRINGE SQ SCH (05:43)
[2020-02-27 07:04] LABS: Glucose 167 mg/dL (70-105); Osmolality,Calculated 296 (280-300)
[2020-02-27] MEDS ORDERED: Ipratropium/Albuterol Neb 3 ML IH ONE (07:57)
[2020-02-27] MEDS: Acetaminophen 325 MG TABLET PO PRN (08:00)
[2020-02-27] MEDS: Furosemide 40 MG/4 ML VIAL IVP SCH (08:47)
[2020-02-27] MEDS: Magnesium Oxide 400 MG TABLET PO SCH (08:55)
[2020-02-27] MEDS: MethylPREDNISolone 40 MG/ML VIAL IVP SCH (08:55)
[2020-02-27] MEDS: Aspirin 81 MG TAB.CHEW PO SCH (08:55)
[2020-02-27] MEDS: lisinopriL 20 MG TABLET PO SCH (08:55)
[2020-02-27] MEDS: Loratadine 10 MG TABLET PO SCH (08:55)
[2020-02-27] MEDS: Fluticasone Propionate Nasal 50 MCG/SPRAY BOTTLE NS SCH (08:56)
[2020-02-27 11:43] VITALS: BP 123/67
[2020-02-27] MEDS: Acetylcysteine 10% 10 ML VIAL IH SCH ×2 (11:57→16:11)
[2020-02-27] MEDS ORDERED: Piperacillin/Tazobactam 3.375 GM in 0.9 % Sodium Chloride Mini Bag 100 ML IVPB SCH (16:00)
== END 2020-02-27 14:38 | disposition short-term general hospital (02) | DRG 139 ==
LOC: INPPIK 12:31 → EMEROOPIK 12:31 → INPPIK 16:55
PROVIDERS: ADMIT Family Medicine; ATTEND Family Medicine

== ENCOUNTER 2020-05-29 11:38 | Observation (INO) ==
[2020-05-29] MEDS ORDERED: levoFLOXacin 500 MG/100 ML 500 MG/100 ML BAG IVPB ONE (11:45)
[2020-05-29] MEDS ORDERED: methylPREDNISolone 125 MG/2 ML VIAL IVP ONE (11:45)
[2020-05-29 12:16] LABS: Basophils % 0.6 %; Eosinophils # 0.1 K/mcL (0.0-0.6); Eosinophils % 1.6 %; Hematocrit 42.8 % (35.3-44.9); Hemoglobin 13.7 g/dL (11.5-15.4); Immature Granulocytes % 0.2 % (0-4); Lymphocytes # 1.4 K/mcL (0.6-4.6); Lymphocytes % 21.9 %; Mean Corpuscular Hemoglobin 30.4 pg (28.0-33.3); Mean Corpuscular Volume 94.9 fL (83.0-100.0); Mean Platelet Volume 12.5 fL (9.4-12.4); Monocytes # 0.5 K/mcL (0.0-1.3); Neutrophils # 4.2 K/mcL (1.6-8.9); Platelet Count 144 K/mcL (140-400); Red Blood Count 4.51 M/mcL (3.82-4.97); Red Cell Distribution Width 14.2 % (11.5-14.5); Segmented Neutrophils % 67.7 %; White Blood Count 6.2 K/mcL (4.3-11.1)
[2020-05-29 12:24] LABS: INR 1.1; Prothrombin Time 13.1 Seconds (9.4-12.1)
[2020-05-29 12:26] LABS: Activated Partial Thrombo Time 33.1 Seconds (26.0-36.0)
[2020-05-29 12:35] LABS: BUN/Creatinine Ratio 26 (6-26); Blood Urea Nitrogen 18 mg/dL (8-23); Calcium 9.1 mg/dL (8.6-10.3); Carbon Dioxide 29 mEq/L (23-29); Chloride 104 mEq/L (98-107); Glucose 141 mg/dL (70-105); Osmolality,Calculated 294 (280-300); Potassium 3.8 mEq/L (3.5-5.1); Sodium 140 mEq/L (136-145); Troponin I < 0.03 ng/mL (< 0.04); eGFR For African Americans > 60 (> 60); eGFR For Non-African Americans > 60 (> 60)
[2020-05-29] MEDS ORDERED: Naloxone 0.4 MG/ML INJ IVP PRN (14:49)
[2020-05-29] MEDS ORDERED: Acetaminophen 325 MG TABLET PO PRN (14:59)
[2020-05-29] MEDS ORDERED: Ondansetron 4 MG/2 ML VIAL IVP PRN (14:59)
[2020-05-29] MEDS ORDERED: Furosemide 20 MG/2 ML VIAL IVP SCH (15:16)
[2020-05-29] MEDS: Furosemide 40 MG/4 ML VIAL IVP SCH (17:14)
[2020-05-29] MEDS: Magnesium Oxide 400 MG TABLET PO SCH (20:27)
[2020-05-30 07:51] LABS: Hematocrit 42.8 % (35.3-44.9); Hemoglobin 13.9 g/dL (11.5-15.4); Mean Corpuscular HGB Conc 32.5 g/dL (31.6-35.5); Mean Corpuscular Hemoglobin 30.3 pg (28.0-33.3); Mean Corpuscular Volume 93.2 fL (83.0-100.0); Mean Platelet Volume 12.6 fL (9.4-12.4); Platelet Count 144 K/mcL (140-400); Red Blood Count 4.59 M/mcL (3.82-4.97); Red Cell Distribution Width 13.3 % (11.5-14.5); White Blood Count 6.9 K/mcL (4.3-11.1)
[2020-05-30 08:12] LABS: BUN/Creatinine Ratio 29 (6-26); Blood Urea Nitrogen 18 mg/dL (8-23); Calcium 9.5 mg/dL (8.6-10.3); Carbon Dioxide 34 mEq/L (23-29); Chloride 102 mEq/L (98-107); Glucose 137 mg/dL (70-105); Osmolality,Calculated 298 (280-300); Potassium 3.7 mEq/L (3.5-5.1); Sodium 142 mEq/L (136-145); eGFR For African Americans > 60 (> 60); eGFR For Non-African Americans > 60 (> 60)
[2020-05-30] MEDS: Fluticasone Propionate Nasal 50 MCG/SPRAY BOTTLE NS SCH (08:14)
[2020-05-30] MEDS: Furosemide 40 MG/4 ML VIAL IVP SCH ×2 (08:14→16:02)
[2020-05-30] MEDS: Magnesium Oxide 400 MG TABLET PO SCH ×2 (08:14→19:45)
[2020-05-30] MEDS: Aspirin 81 MG TAB.CHEW PO SCH (08:15)
[2020-05-30] MEDS: Famotidine 20 MG TABLET PO SCH (08:15)
[2020-05-30] MEDS: Loratadine 10 MG TABLET PO SCH (08:15)
[2020-05-30] MEDS: Tiotropium 18 MCG inhalation IH SCH (10:18)
[2020-05-31] MEDS ORDERED: Furosemide 40 MG TABLET PO SCH (08:00)
[2020-05-31] MEDS: Famotidine 20 MG TABLET PO SCH (08:33)
[2020-05-31] MEDS: Loratadine 10 MG TABLET PO SCH (08:33)
[2020-05-31] MEDS: Aspirin 81 MG TAB.CHEW PO SCH (08:33)
[2020-05-31] MEDS: Magnesium Oxide 400 MG TABLET PO SCH (08:33)
[2020-05-31] MEDS: Fluticasone Propionate Nasal 50 MCG/SPRAY BOTTLE NS SCH (08:34)
[2020-05-31 08:35] VITALS: BP 173/84
[2020-05-31] MEDS: Tiotropium 18 MCG inhalation IH SCH (10:57)
== END 2020-05-31 12:37 | disposition home or self-care (01) ==
LOC: INPPIK 11:38 → EMEROOPIK 11:38 → INPPIK 16:32
PROVIDERS: ADMIT Family Medicine; ATTEND Family Medicine